=== PATIENT | male | born 1980 | race Caucasian/White ===

== ENCOUNTER 2016-09-25 13:10 | Inpatient (IN) | payer OTHER ==
[~2016-09-25] VITALS: Ht 162.6 cm; Wt 45.1 kg
--- NOTE | 2016-09-25 14:04 | EMERGENCY ROOM VISIT NOTE ---
History First contact with patient: 13:30 Chief Complaint: CONSTIPATION Stated Complaint: SORE ANUS, CONSTIPATION, NAUSEA, BITS OF BLOOD IN Nursing Triage Summary: Triage note: Pt reports constipation - last bm was 3 days ago. pt reports "today i threw up and there was a speck of blood in it." History of Present Illness The patient is a 35 year old male who presents to the Emergency Room with complaints of soreness around anus and constipation x 1 week Patient had a bowel movement one week ago. The stool was very painful and patient felt deep internal pain on the left side of his rectum. He feels that he might have noticed some blood on wiping Three days ago, he felt the urge to go, but was feeling the same pain. He had a minor bowel movement but experienced tenesmus. Since then, he has been passing gas with blood specked mucous discharge and streaks of stool. He sometimes has the urge to go, but is unable to defecate. He is unsure if this is a psychological fear of pain, or a physical inability to pass stool. He has been drinking increased amounts of water. Yesterday, he took some Metamucil and Miralax. Earlier today, he again drank a glass of Metamucil. Despite urge, he is unable to have a bowel movement Currently, he is experiencing soreness around his anal sphincter described as a burning and aching. The soreness makes it uncomfortable to sit or lie on his back. Symptoms improved with standing or lying on side He denies any abdominal pain. He has had some nausea earlier today with one episode of vomiting - bile, small volume, unsure if there was a speck of blood it. No denies anal trauma, and has had no abdominal surgery Travel outside the [facility] [place]. Review of Systems See HPI for pertinent positives and negatives. A total of ten systems were reviewed and were otherwise negative. Social History Smoking Status: Never Smoker Current/Historical Medications Miscellaneous Medications Finasteride (Propecia), 1 MG PO Allergies Coded Allergies: No Known Allergies (Unverified , 09/25/16) Physical Exam Vital Signs Date Time Temp Pulse Resp B/P Pulse Ox O2 Delivery O2 Flow Rate FiO2 09/25/16 18:28 119 17 108/65 97 Room Air 09/25/16 17:14 123 17 100/54 97 09/25/16 15:27 121 17 125/87 99 Room Air 09/25/16 13:13 36.9 125 18 147/87 98 Room Air Physical Exam GENERAL: alert, well appearing, thin, pacing in room, mild acute distress, non- toxic HEAD: Normocephalic, atraumatic. No sinus tenderness. EYES: PERRL, EOMI, normal conjunctiva OROPHARYNX: no exudate, no erythema, lips, buccal mucosa, and tongue normal and mucous membranes are dry NECK: supple, no nuchal rigidity, no adenopathy, non-tender LUNGS: Clear to auscultation. Normal chest wall mechanics, good air entry. No crepitations, crackles, or wheezes HEART: no murmurs, S1 normal and S2 normal, tachycardic CHEST: No reproducible tenderness. ABDOMEN: abdomen non-tender, not overdistended, but not as soft as expected. normo-active bowel sounds, no masses, no rebound or guarding. BACK: Back is symmetrical on inspection, no deformities, no midline tenderness, no CVA tenderness. No obvious perirectal abscess, fissure, or fistula SKIN: Warm, pink, dry. No erythema, rashes, or bruising. EXTREMITIES: Grossly normal. Moving all 4 limbs, strength 5/5. No pitting edema. Calves non tender. NEURO: Alert, Ox3. No focal deficits. Normal sensorium, cranial nerves II-XII grossly intact, normal speech. PSYCH: Mood and affect appropriate. Medical Decision & Procedures ER Provider Diagnostic Interpretation: KUB CLINICAL HISTORY: Constipation. FINDINGS: 2 AP supine abdominal radiograph are obtained. No prior studies are available for comparison at the time of dictation. There is a nonobstructed abdominal bowel gas pattern. There is rectosigmoid fecal impaction with moderate constipation noted throughout the remainder of the colon. No evidence of intraperitoneal free air is seen. There are no abnormal abdominal calcifications. The lung bases are clear. The bony structures appear intact. IMPRESSION: 1. No bowel obstruction. 2. Rectosigmoid fecal impaction and moderate constipation. CT SCAN OF THE ABDOMEN AND PELVIS WITH IV CONTRAST CLINICAL HISTORY: Constipation. Leukocytosis. COMPARISON STUDY: KUB dated 09/25/2016. TECHNIQUE: Following the IV administration of 118 cc of Optiray 320, CT scan of the abdomen and pelvis is performed from the lung bases to the proximal femora. Images are reviewed in the axial, sagittal, and coronal planes. IV contrast was administered without complication. Automated dose control exposure was utilized. CT DOSE: 259.60 mGy.cm FINDINGS: Lung bases: The heart is normal in size and without pericardial effusion. The lung bases are clear. Liver: The contrast-enhanced liver is normal in size, contour, and attenuation. There is no intrahepatic biliary ductal dilatation. The hepatic veins and portal veins are patent. Gallbladder: Unremarkable. Spleen: Normal in size and attenuation. Pancreas: Unremarkable. Adrenal glands: Unremarkable. Kidneys: The contrast enhanced kidneys are normal in size and without hydronephrosis. The kidneys enhance symmetrically. Abdominal vasculature: The abdominal aorta is normal in course and caliber. Bowel: There is rectosigmoid fecal impaction. Mild rectal wall thickening is noted. There is perirectal stranding. The appearance is typical for stercoral proctitis. There is moderate constipation throughout the remainder of the colon. No bowel obstruction is seen. The appendix is normal as visualized. Peritoneum: There is no intraperitoneal free air or abdominal ascites. Lymphadenopathy: None. Pelvic viscera: The bladder, prostate, and seminal vesicles are normal as visualized. Skeletal structures: No lytic or blastic lesions are seen. IMPRESSION: 1. There is rectosigmoid fecal impaction with evidence of stercoral proctitis. 2. Moderate constipation is seen throughout the remainder of the colon. No bowel obstruction is identified. Laboratory Results 09/25/16 15:25 Red Blood Count 4.83, Mean Corpuscular Volume 85.7, Mean Corpuscular Hemoglobin 30.6, Mean Corpuscular Hemoglobin Concent 35.7, Mean Platelet Volume 9.8, Neutrophils (%) (Auto) 90.8, Lymphocytes (%) (Auto) 3.3, Monocytes (%) (Auto) 4.8, Eosinophils (%) (Auto) 0.6, Basophils (%) (Auto) 0.1, Neutrophils # (Auto) 17.00, Lymphocytes # (Auto) 0.62, Monocytes # (Auto) 0.90, Eosinophils # (Auto) 0.11, Basophils # (Auto) 0.02 09/25/16 15:25 Test 09/25/16 15:25 White Blood Count 18.72 K/uL (4.8-10.8) Red Blood Count 4.83 M/uL (4.7-6.1) Hemoglobin 14.8 g/dL (14.0-18.0) Hematocrit 41.4 % (42-52) Mean Corpuscular Volume 85.7 fL (80-100) Mean Corpuscular Hemoglobin 30.6 pg (25-34) Mean Corpuscular Hemoglobin Concent 35.7 g/dl (32-36) Platelet Count 377 K/uL (130-400) Mean Platelet Volume 9.8 fL (7.4-10.4) Neutrophils (%) (Auto) 90.8 % Lymphocytes (%) (Auto) 3.3 % Monocytes (%) (Auto) 4.8 % Eosinophils (%) (Auto) 0.6 % Basophils (%) (Auto) 0.1 % Neutrophils # (Auto) 17.00 K/uL (1.4-6.5) Lymphocytes # (Auto) 0.62 K/uL (1.2-3.4) Monocytes # (Auto) 0.90 K/uL (0.11-0.59) Eosinophils # (Auto) 0.11 K/uL (0-0.5) Basophils # (Auto) 0.02 K/uL (0-0.2) RDW Standard Deviation 41.0 fL (36.4-46.3) RDW Coefficient of Variation 13.1 % (11.5-14.5) Immature Granulocyte % (Auto) 0.4 % Immature Granulocyte # (Auto) 0.07 K/uL (0.00-0.02) Anion Gap 12.0 mmol/L (3-11) Est Creatinine Clear Calc Drug Dose 63.9 ml/min Estimated GFR () 113.3 Estimated GFR (Non- 97.8 BUN/Creatinine Ratio 16.5 (10-20) Calcium Level 9.3 mg/dl (8.5-10.1) Total Bilirubin 0.7 mg/dl (0.2-1) Aspartate Amino Transf (AST/SGOT) 12 U/L (15-37) Alanine Aminotransferase (ALT/SGPT) 20 U/L (12-78) Alkaline Phosphatase 97 U/L (45-117) Total Protein 9.2 gm/dl (6.4-8.2) Albumin 4.7 gm/dl (3.4-5.0) Globulin 4.5 gm/dl (2.5-4.0) Albumin/Globulin Ratio 1.0 (0.9-2) Medications Administered Medications (Trade) Dose Ordered Sig/Zenon Route Start Time Stop Time Status Last Admin Dose Admin Sodium Chloride 1,000 ml @ 500 mls/hr Q2H IV 09/25/16 15:15 10/25/16 15:14 09/25/16 15:26 500 MLS/HR Sodium Chloride (Nss 1000ml) 1,000 ml @ 999 mls/hr Q1H1M STAT IV 09/25/16 18:29 09/25/16 19:29 09/25/16 18:39 999 MLS/HR Ciprofloxacin/ Dextrose (Cipro / D5w) 400 mg NOW STAT IV 09/25/16 18:38 09/25/16 18:40 DC 09/25/16 18:49 400 MG Metronidazole (Flagyl / Nss) 500 mg NOW STAT IV 09/25/16 18:38 09/25/16 18:40 DC 09/25/16 18:47 500 MG Sodium Biphosphate/ Sodium Phosphate (Fleet Enema) 132 ml NOW STAT AK 09/25/16 18:38 09/25/16 18:40 DC 09/25/16 18:49 132 ML Fentanyl Citrate (Fentanyl Inj) 50 mcg NOW STAT IV 09/25/16 18:44 09/25/16 18:45 DC 09/25/16 18:52 50 MCG Medical Decision The patient was evaluated in room C9. A complete history and physical exam was performed. Patient denied analgesic and antiemetic medication. 1L of IV normal saline was given to improve hydration status. Lab work was performed. CBC showed no anemia, but did show leukocytosis with neutrophilia. BMP and LFT were within normal limits. ANASTACIA was performed where some stool was felt at the fingertip. Fecal occult blood test was positive. Immediately after the ANASTACIA, patient was feeling lightheaded and had some emesis. He continued to refuse medications for nausea and pain KUB was performed and reported no bowel obstruction but rectosigmoid fecal impaction and moderate constipation. In view of elevated WBC, a CT was ordered Patient was updated on the results. The need for enema was discussed, unless otherwise contra-indicated on the CT scan report. CT AP showed rectosigmoid fecal impaction with evidence of stercoral proctitis and moderate constipation seen throughout the remainder of the colon but no bowel obstruction identified. Case was discussed with machine slat basket maker, Dr. Goldman at 18:[address] findings at 18:30. He advised that an enema be attempted to relieve impaction - a fleet enema preferred over a soap suds enema. If the enema was unable to cause disimpaction, GI would follow up with scoping. Given that patient meets SIRS criteria (tachycardia, leukocytosis, known source of infection), the need to commence IV antibiotics was also discussed. Patient was started on 400mg IV ciprofloxacin and 500mg IV metronidazole. A fleet enema was ordered, and patient was given 50mcg IV fentanyl prior. The case was discussed with hospitalist, Dr. Bergeron, who was agreeable to assess the patient for admission. Impression Primary Impression: Stercoral proctitis Additional Impressions: Fecal impaction, SIRS (systemic inflammatory response syndrome) Departure Information Dispostion Being Evaluated By Hospitalist Condition GOOD Referrals No Doctor, Assigned (PCP) Patient Instructions A Signature Page, [facility] [employer]
[2016-09-25] MEDS ORDERED: FINA1TAB3 PO (14:58)
[2016-09-25] MEDS: SODIUM CHLORIDE 0.9% 1000ML 1,000 ML IV SCH ×4 (15:26→21:30)
[2016-09-25 15:37] LABS: BASO % 0.1 %; BASO ABS # 0.02 K/uL (0-0.2); COMPLETE YES; EOS % 0.6 %; HEMATOCRIT 41.4 % (42-52); IG% 0.4 %; LYMPH % 3.3 %; LYMPH ABS # 0.62 K/uL (1.2-3.4); MEAN CELL VOLUME 85.7 fL (80-100); MEAN CORPUSCULAR HEMOGLOBIN 30.6 pg (25-34); MEAN CORPUSCULAR HGB CONC 35.7 g/dl (32-36); MEAN PLATELET VOLUME 9.8 fL (7.4-10.4); MONO % 4.8 %; NEUT % 90.8 %; PLATELET COUNT 377 K/uL (130-400); RED BLOOD COUNT 4.83 M/uL (4.7-6.1); WHITE BLOOD COUNT 18.72 K/uL (4.8-10.8)
[2016-09-25 16:01] LABS: BUN/CREATININE RATIO 16.5 (10-20); CALCIUM 9.3 mg/dl (8.5-10.1); POTASSIUM 3.7 mmol/L (3.5-5.1)
[2016-09-25] MEDS ORDERED: OPTIRAY 320 IV PRN (16:15)
--- NOTE | 2016-09-25 17:32 | DIAGNOSTIC IMAGING REPORT ---
KUB CLINICAL HISTORY: Constipation. FINDINGS: 2 AP supine abdominal radiograph are obtained. No prior studies are available for comparison at the time of dictation. There is a nonobstructed abdominal bowel gas pattern. There is rectosigmoid fecal impaction with moderate constipation noted throughout the remainder of the colon. No evidence of intraperitoneal free air is seen. There are no abnormal abdominal calcifications. The lung bases are clear. The bony structures appear intact. IMPRESSION: 1. No bowel obstruction. 2. Rectosigmoid fecal infection and moderate constipation. Electronically signed by: Baltazar Fritz M.D. 09/25/2016 5:31 PM
--- NOTE | 2016-09-25 18:17 | DIAGNOSTIC IMAGING REPORT ---
CT SCAN OF THE ABDOMEN AND PELVIS WITH IV CONTRAST CLINICAL HISTORY: Constipation. Leukocytosis. COMPARISON STUDY: KUB dated 09/25/2016. TECHNIQUE: Following the IV administration of 118 cc of Optiray 320, CT scan of the abdomen and pelvis is performed from the lung bases to the proximal femora. Images are reviewed in the axial, sagittal, and coronal planes. IV contrast was administered without complication. Automated dose control exposure was utilized. CT DOSE: 259.60 mGy.cm FINDINGS: Lung bases: The heart is normal in size and without pericardial effusion. The lung bases are clear. Liver: The contrast-enhanced liver is normal in size, contour, and attenuation. There is no intrahepatic biliary ductal dilatation. The hepatic veins and portal veins are patent. Gallbladder: Unremarkable. Spleen: Normal in size and attenuation. Pancreas: Unremarkable. Adrenal glands: Unremarkable. Kidneys: The contrast enhanced kidneys are normal in size and without hydronephrosis. The kidneys enhance symmetrically. Abdominal vasculature: The abdominal aorta is normal in course and caliber. Bowel: There is rectosigmoid fecal impaction. Mild rectal wall thickening is noted. There is perirectal stranding. The appearance is typical for stercoral proctitis. There is moderate constipation throughout the remainder of the colon. No bowel obstruction is seen. The appendix is normal as visualized. Peritoneum: There is no intraperitoneal free air or abdominal ascites. Lymphadenopathy: None. Pelvic viscera: The bladder, prostate, and seminal vesicles are normal as visualized. Skeletal structures: No lytic or blastic lesions are seen. IMPRESSION: 1. There is rectosigmoid fecal impaction with evidence of stercoral proctitis. 2. Moderate constipation is seen throughout the remainder of the colon. No bowel obstruction is identified. Electronically signed by: Baltazar Fritz M.D. 09/25/2016 6:15 PM
[2016-09-25] MEDS ORDERED: SODIUM CHLORIDE 0.9% 1000ML 1,000 ML IV STA (18:29)
[2016-09-25] MEDS ORDERED: METRONIDAZOLE 500MG / 100ML NSS IV STA (18:38)
[2016-09-25] MEDS ORDERED: SOD PHOSPHATE/SOD BIPHOSPHATE ENEMA 132 ML BTL PR STA (18:38)
[2016-09-25] MEDS ORDERED: CIPROFLOXACIN 400MG / 200ML D5W IV STA (18:38)
[2016-09-25] MEDS ORDERED: FENTANYL CITRATE INJ 50 MCG/1 ML 2 ML VIAL IV STA ×2 (18:44→20:13)
[2016-09-25] MEDS ORDERED: MoRPHine SULFATE 4 MG/ML 1 ML CARP\\VIAL IV PRN (20:15)
[2016-09-25] MEDS ORDERED: MoRPHine SULFATE 2 MG/ML CARP IV PRN (20:15)
--- NOTE | 2016-09-25 20:59 | History and Physical ---
History & Physical H&P dictated. #[id number].
--- NOTE | 2016-09-25 21:29 | EMERGENCY ROOM VISIT NOTE ---
ED Visit Note First contact with patient: 14:58 Resident Physician Supervision Note: Dr. Stacey Fung was resident physician during care of patient. I separately evaluated patient and did history and exam. I discussed the case with the resident and generally agree with the findings and plan. 35 yr old male who notes painful bloody firm BM 1 week ago and since then holding back from BM. Increasing low pelvic discomfort and now diffuse mild discomfort consistent with constipation. Exam is consistent with hypoactive bowel sounds, some mild distention, non-surgical mild vague diffuse TTP, and some tachycardia. He does not appear overtly septic though labs returned WBC, and with tachycardia I am worried he is early sepsis. Given fluids and with this felt CT reasonable. CT shows significant proctitis. I discussed with GI who suggest Flagyl/Cipro and a Fleets enema (advised against any larger volumn enema). Patient without peritonitis. I made it clear to patient and family/ friends the concern for perforation but as unable to digitally disimpact will need to try something, thus the fleet enema. Stable otherwise feeling well. Was given small dose fentanyl for his discomfort prior being given fleet. Diagnosis: Stercoral Proctitis Fecal impaction Constipation Sepsis Documented By: Miguel Rock MD
--- NOTE | 2016-09-25 21:46 | HISTORY & PHYSICAL EXAMINATION ---
DATE OF ADMISSION: 09/25/2016 CHIEF COMPLAINT: Constipation, blood per rectum. HISTORY OF PRESENT ILLNESS: A 35-year-old male, who presents to the Emergency Department complaining of soreness around his anus and not having a bowel movement for approximately one week. He said, approximately a week ago, he did notice some deep pain in the left side of his rectum and in a sense purposely did not want to have a bowel movement, thinking that this would cause more pain and perhaps bleeding. He attempted to use Metamucil and MiraLax a day prior to coming to the Emergency Department, but still was unable to have a bowel movement. Actually he felt that it increased his abdominal pain and he even had nausea and vomiting today. PAST MEDICAL HISTORY: Unremarkable. MEDICATIONS: Finasteride 1 mg p.o. daily. ALLERGIES: He has no known drug allergies. SOCIAL HISTORY: He is a musician, self-employed, single and actually visiting his girlfriend's parents in this area, lives in [place]. He has never smoked. No alcohol, no illicit substances. REVIEW OF SYSTEMS: A 10-system review was performed all of which were negative. I placed the positives in the HPI. FAMILY HISTORY: Unremarkable. PHYSICAL EXAMINATION: VITAL SIGNS: Temperature 36.9, pulse 125, respiratory rate 18, blood pressure 147/87 and pulse ox 98% on room air. GENERAL: The patient is awake, alert and oriented x3, in mild distress secondary to lower abdominal and rectal pain. HEENT: TMs intact. No inflammation. Extraocular muscles intact, Pupils are equal, round and react to light and accommodation. Mucous membranes are moist. Throat is clear. NECK: No JVD or lymphadenopathy. LUNGS: Clear to auscultation bilaterally. No rales, rhonchi or wheezes. HEART: Regular, normal S1, S2, without murmurs, rubs or gallops. ABDOMEN: Soft. Normal bowel sounds. No rebound or guarding. There is some tenderness with deep pressure in the lower mid quadrant. SKIN: Warm and dry. No rashes. EXTREMITIES: No clubbing, cyanosis or edema. NEUROLOGIC: Cranial nerves II-XII are grossly intact and nonfocal. PSYCHIATRIC: The patient is pleasant and cooperative. LABORATORY DATA: White count is elevated at 18.72, hemoglobin 14.8, hematocrit 41.4, platelet count of 377,000. Sodium 136, potassium 3.7, chloride 99, CO2 25, BUN 16, creatinine 1.0, AST of 12, ALT of 20, glucose was [address] scan of the abdomen and pelvis revealed: 1. Rectosigmoid fecal impaction with evidence of stercoral proctitis. 2. Moderate constipation is seen throughout the remainder of the colon. No bowel obstruction is identified. ASSESSMENT: 1. Rectosigmoid fecal impaction. 2. Proctitis. 3. Constipation. PLAN: The patient was admitted and placed on IV Cipro and IV Flagyl. He was given IV fluids. He can have a full liquid diet until midnight, at which point he will be made n.p.o. in the event that upon consultation with GI a sigmoidoscopy may be procured. Under the direction of the pearl maker the patient was given a Fleet enema in the Emergency Department and was actually able to pass a hard stool just minutes ago. He was offered pain control and nausea control. DVT prophylaxis in the form of TEDs and SCDs with holding a pharmacologic prophylaxis in that the patient is able to ambulate, so is at lower risk and also may be proceeding with a procedure in the near future. KRIS
[2016-09-25] MEDS: SODIUM CHLOR 0.45% + 20MEQ KCL 1,000 ML IV SCH (22:40)
[2016-09-25] MEDS: ONDANSETRON INJ 2 MG/ML 2 ML VIAL IV PRN (22:45)
[2016-09-25 23:00] VITALS: BP 137/74; PULSE 105; TEMP 37; O2SAT 93; Ht 162.6 cm; Wt 45.1 kg
[2016-09-25] MEDS: FAMOTIDINE 20 MG TAB PO SCH (23:20)
[2016-09-26] VITALS (9 sets, daily range): BP systolic 106–145; BP diastolic 58–81; PULSE 91–121; TEMP 36.8–37.6; O2SAT 96–100
[2016-09-26 02:01] LABS: MANUAL MICROSCOPIC REQUIRED? NO; REVIEW REQ? NO; URINE APPEARANCE CLEAR (CLEAR); URINE BILIRUBIN NEG (NEG); URINE COLOR YELLOW; URINE NITRITE NEG (NEG); URINE SPECIFIC GRAVITY 1.041 (1.000-1.030); UROBILINOGEN NEG (NEG)
[2016-09-26] MEDS: METRONIDAZOLE / NSS 500 MG in PREMIXED NSS 100 ML IV SCH ×3 (02:08→18:35)
[2016-09-26] MEDS: ONDANSETRON INJ 2 MG/ML 2 ML VIAL IV PRN ×2 (05:46→23:39)
[2016-09-26] MEDS: KETOROLAC TROMETHAMINE 15 MG/ML VIAL IV. PRN ×3 (05:47→23:40)
[2016-09-26] MEDS: CIPROFLOXACIN / D5W 400 MG in PREMIXED IN D5W 200 ML IV SCH ×2 (05:48→18:35)
[2016-09-26] MEDS: SODIUM CHLOR 0.45% + 20MEQ KCL 1,000 ML IV SCH ×3 (05:48→21:10)
[2016-09-26 07:25] LABS: BASO % 0.3 %; BASO ABS # 0.03 K/uL (0-0.2); COMPLETE YES; EOS % 0.2 %; HEMATOCRIT 31.5 % (42-52); IG% 0.3 %; LYMPH % 7.7 %; LYMPH ABS # 0.72 K/uL (1.2-3.4); MEAN CELL VOLUME 86.3 fL (80-100); MEAN CORPUSCULAR HEMOGLOBIN 29.3 pg (25-34); MEAN PLATELET VOLUME 9.6 fL (7.4-10.4); MONO % 13.1 %; NEUT % 78.4 %; PLATELET COUNT 267 K/uL (130-400); RED BLOOD COUNT 3.65 M/uL (4.7-6.1); WHITE BLOOD COUNT 9.34 K/uL (4.8-10.8)
[2016-09-26 07:52] LABS: BUN/CREATININE RATIO 12.8 (10-20); C-REACTIVE PROTEIN 7.74 mg/dl (0-0.29); CALCIUM 7.2 mg/dl (8.5-10.1); CREATININE 0.74 mg/dl (0.60-1.40); POTASSIUM 3.3 mmol/L (3.5-5.1)
[2016-09-26] MEDS: FAMOTIDINE 20 MG TAB PO SCH ×2 (09:00→20:35)
--- NOTE | 2016-09-26 11:11 | Hospitalist Progress Note ---
Hospitalist Progress Note Date of Service Sep 26, 2016. Subjective Pt evaluation today including: conversation w/ patient, physical exam, chart review, lab review, review of studies, review of inpatient medication list Having less pain today. Passing gas from below, but has not had any further bm. Potassium was 3.3. I ordered a K-rider. He does have potassium in his IVF currently. He has been NPO from midnight awaiting possibility of sigmoidoscopy today. Additional Comments: A 10 system review was performed and all were negative. Positives were placed in the subjective section. Objective Vital Signs Date Time Temp Pulse Resp B/P Pulse Ox O2 Delivery O2 Flow Rate FiO2 09/26/16 08:00 99 Room Air 09/26/16 07:03 36.9 104 20 106/60 99 Room Air 09/26/16 05:07 37.6 102 20 111/58 96 Room Air 09/26/16 00:03 36.9 121 22 110/66 99 Room Air 09/25/16 23:00 37.0 105 20 137/74 93 Room Air 09/25/16 21:51 16 09/25/16 21:20 106 16 118/75 Room Air 09/25/16 18:28 119 17 108/65 97 Room Air 09/25/16 17:14 123 17 100/54 97 09/25/16 15:27 121 17 125/87 99 Room Air 09/25/16 13:13 36.9 125 18 147/87 98 Room Air Physical Exam Notes: GEN: Awake, alert, and oriented x 3. Not in acute distress HEENT: Tm's intact, no inflammation, EOMI, PERRLA, MMM Neck: Soft, supple Lungs: CTA b/l, no r/r/w Heart: REG, nrl S1S2 without murmurs, rubs or gallops Abdomen: Soft, NT, ND, + BS EXT: No C/C/E NEURO: CN's II-XII grossly intact, non-focal Skin: warm, dry, no rashes PSYCH: pleasant, cooperative, no signs of significant anxiety or depression. Laboratory Results Last 24 Hours Test 09/25/16 15:25 09/26/16 01:50 09/26/16 06:55 White Blood Count 18.72 K/uL 9.34 K/uL Red Blood Count 4.83 M/uL 3.65 M/uL Hemoglobin 14.8 g/dL 10.7 g/dL Hematocrit 41.4 % 31.5 % Mean Corpuscular Volume 85.7 fL 86.3 fL Mean Corpuscular Hemoglobin 30.6 pg 29.3 pg Mean Corpuscular Hemoglobin Concent 35.7 g/dl 34.0 g/dl Platelet Count 377 K/uL 267 K/uL Mean Platelet Volume 9.8 fL 9.6 fL Neutrophils (%) (Auto) 90.8 % 78.4 % Lymphocytes (%) (Auto) 3.3 % 7.7 % Monocytes (%) (Auto) 4.8 % 13.1 % Eosinophils (%) (Auto) 0.6 % 0.2 % Basophils (%) (Auto) 0.1 % 0.3 % Neutrophils # (Auto) 17.00 K/uL 7.32 K/uL Lymphocytes # (Auto) 0.62 K/uL 0.72 K/uL Monocytes # (Auto) 0.90 K/uL 1.22 K/uL Eosinophils # (Auto) 0.11 K/uL 0.02 K/uL Basophils # (Auto) 0.02 K/uL 0.03 K/uL RDW Standard Deviation 41.0 fL 42.5 fL RDW Coefficient of Variation 13.1 % 13.4 % Immature Granulocyte % (Auto) 0.4 % 0.3 % Immature Granulocyte # (Auto) 0.07 K/uL 0.03 K/uL Sodium Level 136 mmol/L 140 mmol/L Potassium Level 3.7 mmol/L 3.3 mmol/L Chloride Level 99 mmol/L 106 mmol/L Carbon Dioxide Level 25 mmol/L 24 mmol/L Anion Gap 12.0 mmol/L 10.0 mmol/L Blood Urea Nitrogen 16 mg/dl 10 mg/dl Creatinine 1.00 mg/dl 0.74 mg/dl Est Creatinine Clear Calc Drug Dose 63.9 ml/min 132.8 ml/min Estimated GFR () 113.3 139.5 Estimated GFR (Non- 97.8 120.3 BUN/Creatinine Ratio 16.5 12.8 Random Glucose 116 mg/dl 108 mg/dl Calcium Level 9.3 mg/dl 7.2 mg/dl Total Bilirubin 0.7 mg/dl Aspartate Amino Transf (AST/SGOT) 12 U/L Alanine Aminotransferase (ALT/SGPT) 20 U/L Alkaline Phosphatase 97 U/L Total Protein 9.2 gm/dl Albumin 4.7 gm/dl Globulin 4.5 gm/dl Albumin/Globulin Ratio 1.0 Urine Color YELLOW Urine Appearance CLEAR Urine pH 5.0 Urine Specific Call 1.041 Urine Protein NEG Urine Glucose (UA) NEG Urine Ketones 2+ Urine Occult Blood NEG Urine Nitrite NEG Urine Bilirubin NEG Urine Urobilinogen NEG Urine Leukocyte Esterase NEG Erythrocyte Sedimentation Rate 13 mm/hr C-Reactive Protein 7.74 mg/dl Assessment and Plan 1. Rectosigmoid fecal impaction. 2. Proctitis. 3. Constipation. 4. Hypokalemia PLAN: Continue IV Cipro and IV Flagyl and IVF. K-rider to be given. n.p.o. awaiting consultation with GI a sigmoidoscopy may be procured. TEDs and SCDs for DVT prophylaxis. Continued [facility] stay due to: multiple IV medications needed Discharge planning: home
[2016-09-26] MEDS ORDERED: SOD PHOSPHATE/SOD BIPHOSPHATE ENEMA 132 ML BTL PR SCH (11:30)
[2016-09-26] MEDS ORDERED: POTASSIUM CHLR 10 MEQ / WTR 10 MEQ in PREMIXED WATER 100 ML IV ONE (11:30)
[2016-09-26] MEDS ORDERED: MIDAZOLAM HCL 1 MG/ML 2ML VIAL ONE (12:12)
--- NOTE | 2016-09-26 12:50 | Endo History and Physical ---
History & Physical Date of Service: Sep 26, 2016. Chief Complaint: Constipation Referring Physician: Dr Bergeron History of Present Illness For Flex sig Social History Smoking Status: Unknown if Ever Smoked Hx Substance Use: No Hx Alcohol Use: Yes (BEER/ONCE A WEEK) Allergies Coded Allergies: No Known Allergies (Unverified , 09/26/16) Current Medications Reported Home Medications Medications Dose Route/Sig Max Daily Dose Days Date Category Propecia (Finasteride) 1 Mg Tab 1 Mg PO 09/25/16 Reported Vital Signs Weight (Kilograms): 78.000 Height (Feet): 5 Height (Inches): 4.00 Date Time Temp Pulse Resp B/P Pulse Ox O2 Delivery O2 Flow Rate FiO2 09/26/16 12:40 36.9 102 18 128/75 98 Room Air 09/26/16 12:00 36.8 100 18 145/78 98 Room Air 94 09/26/16 11:38 36.8 100 20 114/68 98 Room Air 09/26/16 08:00 99 Room Air 09/26/16 07:03 36.9 104 20 106/60 99 Room Air 09/26/16 05:07 37.6 102 20 111/58 96 Room Air 09/26/16 00:03 36.9 121 22 110/66 99 Room Air 09/25/16 23:00 37.0 105 20 137/74 93 Room Air 09/25/16 21:51 16 09/25/16 21:20 106 16 118/75 Room Air 09/25/16 18:28 119 17 108/65 97 Room Air 09/25/16 17:14 123 17 100/54 97 09/25/16 15:27 121 17 125/87 99 Room Air 09/25/16 13:13 36.9 125 18 147/87 98 Room Air Physical Exam General Appearance: + thin Respiratory/Chest: Respiratory effort: no dyspnea Cardiovascular: Heart Auscultation: RRR Abdomen: Inspection & Palpation: soft Assessment and Plan Constipation for flex sig
--- NOTE | 2016-09-26 13:05 | Discharge Instructions ---
Endoscopy Patient Instructions Date / Procedure(s) Performed Sep 26, 2016. Flex Sig Allergy Information Coded Allergies: No Known Allergies (Unverified , 09/26/16) Discharge Date / Findings Sep 26, 2016. Perianal ulcers and fissure Medication Instructions Restart Stopped Medication(s): resume meds Current Inpatient Medications Medications (Trade) Dose Ordered Sig/Zenon Route Start Time Stop Time Status Last Admin Dose Admin Ioversol 100 ml 100 ml UD PRN IV 09/25/16 16:15 09/29/16 16:14 Potassium Chloride/Sodium Chloride (09/26 Nss + 20meq KCl 1000ml) 1,000 ml @ 125 mls/hr Q8H IV 09/25/16 22:00 10/25/16 21:59 09/26/16 05:48 125 MLS/HR Morphine Sulfate (MoRPHine SULFATE INJ) 2 mg Q3H PRN IV 09/25/16 20:15 10/09/16 20:14 Ketorolac Tromethamine (Toradol Inj) 15 mg Q6H PRN IV. 09/25/16 20:15 09/30/16 20:14 09/26/16 11:22 15 MG Morphine Sulfate (MoRPHine SULFATE INJ) 4 mg Q3H PRN IV 09/25/16 20:15 10/09/16 20:14 Ondansetron HCl 4 mg 4 mg Q6H PRN IV 09/25/16 20:15 10/25/16 20:14 09/26/16 05:46 4 MG Ciprofloxacin/ Dextrose 400 mg/ Prmx 200 ml @ 100 mls/hr Q12H IV 09/26/16 06:30 10/06/16 06:29 09/26/16 05:48 100 MLS/HR Metronidazole/Prmx (Flagyl / Nss/ Premixed Nss) 100 ml @ 100 mls/hr Q8H IV 09/26/16 02:30 10/06/16 02:29 09/26/16 11:33 100 MLS/HR Famotidine (Pepcid Tab) 20 mg BID PO 09/25/16 21:00 10/25/16 20:59 09/25/16 23:20 20 MG Sodium Biphosphate/ Sodium Phosphate (Fleet Enema) 132 ml 1130 MS 09/26/16 11:30 09/26/16 16:00 09/26/16 11:30 132 ML Provider Instructions Activity Restrictions - No exercising or heavy lifting for 24 hours. - Do not drink alcohol the day of the procedure. - Do not drive a car or operate machinery until the day after the procedure. - Do not make any important decisions or sign important papers in 24 hours after the procedure. Following Day: - Return to full activity which may include returning to work/school. Diet Start your diet with liquids and light foods (jello, soup, juice, toast). Then eat your usual diet if not nauseated. Treatment For Common After Affects For mild abdominal pain, bloating, or excessive gas: - Rest - Eat lightly - Lie on right side Follow-Up Information Follow-up with as scheduled Anesthesia Information What You Should Know You have had a procedure that required some medicine to reduce anxiety and discomfort. This treatment is called moderate sedation. After receiving the treatment, you may be sleepy, but you will be able to breathe on your own. The effects of the treatment may last for several hours. Follow these instructions along with Activity/Diet recommendations noted above: * Do NOT do anything where dizziness or clumsiness would be dangerous. * Rest quietly at home today, then you can be up and about tomorrow. * Have a responsible person stay with you the rest of today. * You may have had an I.V. today. If so, you may take the dressing off later today. Recommendations Call your doctor if: * Trouble breathing * Continuous vomiting for more than 24 hours * Temperature above 101 degrees * Severe abdominal pain or bloating * Pain not relieved by pain medicine ordered * There is increased drainage or redness from any incision * A large amount of rectal bleeding greater than 2-3 tablespoons. (If you had a polyp/s removed or have hemorrhoids, a small amount of blood - from the rectum is to be expected.) * You have any unanswered questions or concerns. IN THE EVENT OF A SERIOUS EMERGENCY, GO TO THE NEAREST EMERGENCY ROOM Your discharge instructions were prepared by provider Jose Goldman. Patient Instructions Signature Page Steve Sheth Patient (or Guardian) Signature/Date: I have read and understand the instructions given to me by my caregivers. Caregiver/RN/Doctor Signature/Date: The above-named patient and/or guardian has received patient instructions on this date. + Original Patient Signature Page (only) stays with chart. Please make copy for patient.
[2016-09-26] MEDS ORDERED: LIDOCAINE HCL 2% 2 ML VIAL (20MG/ML) ONE (13:12)
[2016-09-26] MEDS ORDERED: PROPOFOL IV EMULSION 10 MG/ML 20 ML VIAL IV ONE (13:12)
[2016-09-26] MEDS ORDERED: PHENYLEPHRINE 100MCG/ML 5ML SYR ONE (13:13)
[2016-09-26] MEDS ORDERED: LIDOCAINE 4% CREAM 15 GM TUBE EXT PRN (13:30)
--- NOTE | 2016-09-26 13:34 | GASTROINTESTINAL CONSULTATION ---
DATE OF CONSULTATION: 09/26/2016 REASON FOR EVALUATION: Constipation and abnormal CT scan. HISTORY OF PRESENT ILLNESS: The patient is a 35-year-old male visiting from [place] has not had a bowel movement for a week. Prior to that, he stated he had a bowel movement that was painful around the anal area and since then he has been afraid to have any bowel movements and has not moved his bowels for a week. He presented to the Emergency Room with a lot of abdominal pain and perianal pain. His white count was elevated at 18,[address] scan was performed which showed a fecal impaction and some thickening of the rectum and some stranding around the rectum suggesting a proctitis prompting GI consultation. PAST MEDICAL HISTORY: Unremarkable. MEDICATIONS: Finasteride 1 mg a day. ALLERGIES: None. FAMILY HISTORY: Noncontributory. 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 He normally lives in [place]. Does not smoke, does not use alcohol. No recreational drugs. REVIEW OF SYSTEMS: Negative for 12 systems. PHYSICAL EXAMINATION: GENERAL: The patient is a thin, but in no acute distress. VITAL SIGNS: Normal. He is afebrile. LUNGS: Clear. HEART: Showed a normal S1 and S2 with regular rate and rhythm without murmurs, rubs, or gallops. ABDOMEN: Soft. There are no masses, tenderness, or hepatosplenomegaly. NEUROLOGIC: Nonfocal. LABORATORY AND IMAGING DATA: White count 18.72, hemoglobin 14.8, platelets 377,000. Liver profile is normal. CT scan shows fecal impaction and some thickening of the rectum. IMPRESSION AND PLAN: The patient presents with constipation. I plan on giving him Fleets enemas until clear and then scheduling him for a flexible sigmoidoscopy for further evaluation. Differential diagnosis would include anal fissure, anal stenosis, proctitis, Crohn's disease or an infectious etiology.
--- NOTE | 2016-09-26 14:38 | Anesthesiology Progress Note ---
Anesthesia Post Op Note Date & Time Sep 26, 2016 at 14:37 Vital Signs Pain Intensity: 0 Vital Signs Past 12 Hours Date Time Temp Pulse Resp B/P Pulse Ox O2 Delivery O2 Flow Rate FiO2 09/26/16 14:32 37.0 98 18 116/81 99 Room Air 09/26/16 13:50 99 18 101/58 100 Room Air 09/26/16 13:43 99 18 96/62 100 Room Air 09/26/16 13:40 82 18 94/58 100 Room Air 09/26/16 13:31 88 18 88/54 100 Room Air 09/26/16 13:20 95 18 85/52 98 95 09/26/16 13:06 77 16 109/66 96 Room Air 09/26/16 12:40 36.9 102 18 128/75 98 Room Air 09/26/16 12:00 36.8 100 18 145/78 98 Room Air 94 09/26/16 11:38 36.8 100 20 114/68 98 Room Air 09/26/16 08:00 99 Room Air 09/26/16 07:03 36.9 104 20 106/60 99 Room Air 09/26/16 05:07 37.6 102 20 111/58 96 Room Air Notes Mental Status: alert / awake / arousable Nausea / Vomiting: adequately controlled Pain: adequately controlled Airway Patency, RR, SpO2: stable & adequate BP & HR: stable & adequate Hydration State: stable & adequate Anesthetic Complications: no major complications apparent
[2016-09-27 00:19] VITALS: BP 126/76; PULSE 111; TEMP 37.9; O2SAT 99
[2016-09-27] MEDS: METRONIDAZOLE / NSS 500 MG in PREMIXED NSS 100 ML IV SCH ×2 (02:20→10:11)
[2016-09-27] MEDS: SODIUM CHLOR 0.45% + 20MEQ KCL 1,000 ML IV SCH (05:34)
[2016-09-27] MEDS: CIPROFLOXACIN / D5W 400 MG in PREMIXED IN D5W 200 ML IV SCH (05:34)
[2016-09-27 07:19] VITALS: BP 110/70; PULSE 91; TEMP 37.2; O2SAT 99
[2016-09-27 07:31] LABS: BASO % 0.2 %; BASO ABS # 0.02 K/uL (0-0.2); COMPLETE YES; EOS % 1.3 %; HEMATOCRIT 30.3 % (42-52); IG% 0.4 %; LYMPH ABS # 1.18 K/uL (1.2-3.4); MEAN CELL VOLUME 87.3 fL (80-100); MEAN CORPUSCULAR HEMOGLOBIN 29.7 pg (25-34); MEAN PLATELET VOLUME 9.8 fL (7.4-10.4); MONO % 13.7 %; NEUT % 70.4 %; PLATELET COUNT 246 K/uL (130-400); RED BLOOD COUNT 3.47 M/uL (4.7-6.1)
[2016-09-27 08:00] LABS: BUN/CREATININE RATIO 9.6 (10-20); CALCIUM 7.8 mg/dl (8.5-10.1); CREATININE 0.68 mg/dl (0.60-1.40); POTASSIUM 3.6 mmol/L (3.5-5.1)
[2016-09-27] MEDS: FAMOTIDINE 20 MG TAB PO SCH (08:11)
--- NOTE | 2016-09-27 10:35 | Hospitalist Progress Note ---
Hospitalist Progress Note Date of Service Sep 27, 2016. (Mary Lou Mckeon PA-C) 09/27/16 agree with PA note (Roney Valadez MD) Subjective Pt evaluation today including: conversation w/ patient, physical exam, chart review, lab review, review of studies Patient reports feeling much better today. Had multiple bowel movements yesterday after the Fleet enema and flex scope. Does admit to feeling fevers overnight with chills and sweats. Rectal pain much improved. Denies nausea. Additional Comments: 6 system review negative. Please see pertinent positives in the history of present illness section. (Mary Lou Mckeon PA-C) Pt evaluation today including: conversation w/ patient, conversation w/ family , physical exam, chart review, review of studies, review of inpatient medication list has moved bms Constitutional: No fever ENT: No hearing loss Respiratory: No cough Abdomen: No pain Male : No dysuria Psychiatric: No depression symptoms (Roney Valadez MD) Objective Vital Signs Date Time Temp Pulse Resp B/P Pulse Ox O2 Delivery O2 Flow Rate FiO2 09/27/16 08:00 Room Air 09/27/16 07:19 37.2 91 18 110/70 99 Room Air 09/27/16 00:19 37.9 111 22 126/76 99 Room Air 09/27/16 00:00 Room Air 09/26/16 16:00 100 Room Air 09/26/16 15:16 36.8 91 16 112/71 100 Room Air 09/26/16 14:32 37.0 98 18 116/81 99 Room Air 09/26/16 13:50 99 18 101/58 100 Room Air 09/26/16 13:43 99 18 96/62 100 Room Air 09/26/16 13:40 82 18 94/58 100 Room Air 09/26/16 13:31 88 18 88/54 100 Room Air 09/26/16 13:20 95 18 85/52 98 95 09/26/16 13:06 77 16 109/66 96 Room Air 09/26/16 12:40 36.9 102 18 128/75 98 Room Air 09/26/16 12:00 36.8 100 18 145/78 98 Room Air 94 09/26/16 11:38 36.8 100 20 114/68 98 Room Air (Mary Lou Mckeon PA-C) Physical Exam General Appearance: no apparent distress Eyes: EOMI Neck: no JVD Respiratory/Chest: lungs clear Cardiovascular: no murmur, + tachycardia Abdomen: normal bowel sounds, non tender, soft Extremities: non-tender, no pedal edema Neurologic/Psychiatric: no motor/sensory deficits (Mary Lou Mckeon PA-C) General Appearance: WD/WN, no apparent distress Eyes: normal inspection, EOMI ENT: hearing grossly normal, pharynx normal Neck: supple, no JVD Respiratory/Chest: chest non-tender, normal breath sounds Cardiovascular: no edema, no JVD Abdomen: non tender, soft Extremities: normal range of motion, non-tender Neurologic/Psychiatric: no motor/sensory deficits, normal mood/affect (Roney Valadez MD) Laboratory Results 09/27/16 07:02 Red Blood Count 3.47, Mean Corpuscular Volume 87.3, Mean Corpuscular Hemoglobin 29.7, Mean Corpuscular Hemoglobin Concent 34.0, Mean Platelet Volume 9.8, Neutrophils (%) (Auto) 70.4, Lymphocytes (%) (Auto) 14.0, Monocytes (%) (Auto) 13.7, Eosinophils (%) (Auto) 1.3, Basophils (%) (Auto) 0.2, Neutrophils # (Auto ) 5.91, Lymphocytes # (Auto) 1.18, Monocytes # (Auto) 1.15, Eosinophils # (Auto ) 0.11, Basophils # (Auto) 0.02 09/27/16 07:02 Test 09/27/16 07:02 White Blood Count 8.40 K/uL (4.8-10.8) Red Blood Count 3.47 M/uL (4.7-6.1) Hemoglobin 10.3 g/dL (14.0-18.0) Hematocrit 30.3 % (42-52) Mean Corpuscular Volume 87.3 fL (80-100) Mean Corpuscular Hemoglobin 29.7 pg (25-34) Mean Corpuscular Hemoglobin Concent 34.0 g/dl (32-36) Platelet Count 246 K/uL (130-400) Mean Platelet Volume 9.8 fL (7.4-10.4) Neutrophils (%) (Auto) 70.4 % Lymphocytes (%) (Auto) 14.0 % Monocytes (%) (Auto) 13.7 % Eosinophils (%) (Auto) 1.3 % Basophils (%) (Auto) 0.2 % Neutrophils # (Auto) 5.91 K/uL (1.4-6.5) Lymphocytes # (Auto) 1.18 K/uL (1.2-3.4) Monocytes # (Auto) 1.15 K/uL (0.11-0.59) Eosinophils # (Auto) 0.11 K/uL (0-0.5) Basophils # (Auto) 0.02 K/uL (0-0.2) RDW Standard Deviation 43.1 fL (36.4-46.3) RDW Coefficient of Variation 13.4 % (11.5-14.5) Immature Granulocyte % (Auto) 0.4 % Immature Granulocyte # (Auto) 0.03 K/uL (0.00-0.02) Anion Gap 11.0 mmol/L (3-11) Est Creatinine Clear Calc Drug Dose 97.6 ml/min Estimated GFR () 144.4 Estimated GFR (Non- 124.6 BUN/Creatinine Ratio 9.6 (10-20) Calcium Level 7.8 mg/dl (8.5-10.1) Last 24 Hours Test 09/27/16 07:02 White Blood Count 8.40 K/uL Red Blood Count 3.47 M/uL Hemoglobin 10.3 g/dL Hematocrit 30.3 % Mean Corpuscular Volume 87.3 fL Mean Corpuscular Hemoglobin 29.7 pg Mean Corpuscular Hemoglobin Concent 34.0 g/dl Platelet Count 246 K/uL Mean Platelet Volume 9.8 fL Neutrophils (%) (Auto) 70.4 % Lymphocytes (%) (Auto) 14.0 % Monocytes (%) (Auto) 13.7 % Eosinophils (%) (Auto) 1.3 % Basophils (%) (Auto) 0.2 % Neutrophils # (Auto) 5.91 K/uL Lymphocytes # (Auto) 1.18 K/uL Monocytes # (Auto) 1.15 K/uL Eosinophils # (Auto) 0.11 K/uL Basophils # (Auto) 0.02 K/uL RDW Standard Deviation 43.1 fL RDW Coefficient of Variation 13.4 % Immature Granulocyte % (Auto) 0.4 % Immature Granulocyte # (Auto) 0.03 K/uL Sodium Level 140 mmol/L Potassium Level 3.6 mmol/L Chloride Level 107 mmol/L Carbon Dioxide Level 22 mmol/L Anion Gap 11.0 mmol/L Blood Urea Nitrogen 7 mg/dl Creatinine 0.68 mg/dl Est Creatinine Clear Calc Drug Dose 97.6 ml/min Estimated GFR () 144.4 Estimated GFR (Non- 124.6 BUN/Creatinine Ratio 9.6 Random Glucose 98 mg/dl Calcium Level 7.8 mg/dl (Mary Lou Mckeon PA-C) Assessment and Plan 35-year-old male presented to the emergency department with rectal pain, constipation. Found to have Rectosigmoid fecal impaction/proctitis status post flex sigmoidoscopy-overall improving -Change to po ABX -Continue IVF -Diet as tolerated DVT prophylaxis -Ambulate -TEDS, SCDs CODE STATUS -LEVEL I FULL CODE DISPO -Hopefully home later today Continued [facility] stay due to: fever (Mary Lou Mckeon PA-C) 35-year-old male presented to the emergency department with rectal pain, constipation. Found to have Rectosigmoid fecal impaction/proctitis status post flex sigmoidoscopy-overall improving Change to po ABX Continue IVF Diet as tolerated DVT prophylaxis Ambulate TEDS, SCDs CODE STATUS FULL CODE DISPO d/c home later today (Roney Valadez MD)
[2016-09-27] MEDS ORDERED: METR-163 PO (11:11)
[2016-09-27] MEDS ORDERED: CIPR-255 PO (11:11)
--- NOTE | 2016-09-27 11:18 | Discharge Instructions ---
Discharge Instructions Admission Reason for Admission: Fecal Impaction,Proctitis Discharge Discharge Diagnosis / Problem: constipation, proctitis Discharge Goals Goal(s): Decrease discomfort Activity Recommendations Activity Limitations: resume your previous activity . Instructions / Follow-Up Instructions / Follow-Up You have been treated for severe constipation and proctitis. It is important for you to drink at least 2 liters of water daily to prevent further constipation Please finish the entire course of antibiotics Please take a over the counter stool softener such as Colace twice daily as needed Please follow up with your primary care physician in 1 week Please follow up with Dr. Goldman from GI within 1 month Return to the emergency department if you have any of the following symptoms: -Fever of 103F or greater -Persistent vomiting - Persistent diarrhea -Lethargy -Chest pain -Shortness of breath -Worsening pain Current Hospital Diet Patient's current hospital diet: Regular Diet Discharge Diet Recommended Diet: Regular Diet Procedures Procedures Performed: FLEXIBLE SIGMOIDOSCOPY Pending Studies Studies pending at discharge: no Medical Emergencies . Who to Call and When: Medical Emergencies: If at any time you feel your situation is an emergency, please call 911 immediately. . Non-Emergent Contact Non-Emergency issues call your: Primary Care Provider . . "Provider Documentation" section prepared by Mary Lou Mckeon. VTE Core Measure Inpt VTE Proph given/why not?: Radha Danielson, SCD's
--- NOTE | 2016-09-27 11:27 | Discharge Summary ---
Discharge Summary Admission Date: Sep 25, 2016 at 20:23 Discharge Date: Sep 27, 2016 Discharge Disposition: Home Principal Diagnosis: fecal impaction, constipation, proctitis Problems/Secondary Diagnoses: hypokalemia Procedures: Flex sigmoidoscopy Consultations: GI Medication Reconciliation New Medications: Ciprofloxacin Hcl (Cipro) 500 Mg Tab 500 MG PO BID for 5 Days Metronidazole (Flagyl) 500 Mg Tab 500 MG PO TID for 5 Days Continued Medications: Finasteride (Propecia) 1 Mg Tab 1 MG PO, TAB Referrals At Discharge Follow up Referrals: [facility] Referral - Within 1-2 Weeks with Jose Goldman M.D. Discharge Exam Patient reports feeling well today. Had several bowel movements after his procedure and fleet enemas yesterday. Denies abdominal pain. Rectal pain is much improved. Does note some fever symptoms overnight. Denies nausea. Review of Systems: Respiratory: No cough, No shortness of breath Cardiovascular: No chest pain Abdomen: No nausea Musculoskeletal: No joint pain Physical Exam: General Appearance: no apparent distress Neck: no JVD Respiratory/Chest: lungs clear Cardiovascular: no murmur, + tachycardia Abdomen / GI: normal bowel sounds, non tender, soft Extremities: no calf tenderness, no pedal edema Neurologic/Psychiatric: oriented x 3 Skin: warm/dry Hospital Course 35-year-old male presented to the emergency department with rectal pain, bleeding and constipation. Found to have Rectosigmoid fecal impaction/ proctitis status post flex sigmoidoscopy-on 09/26 -started on IV cipro and Flagyl. -Tolerating diet -Had several BMs -Change Cipro and Flagyl to oral and additional 5 days -Follow up with GI DVT prophylaxis -Ambulate -TEDS, SCDs CODE STATUS -LEVEL I FULL CODE Total Time Spent: Greater than 30 minutes This includes examination of the patient, discharge planning, medication reconciliation, and communication with other providers. Discharge Instructions Please refer to the electronic Patient Visit Report (Discharge Instructions) for additional information. Follow-Up PCP in 1 week GI within 1 month
[2016-09-27 11:57] VITALS: BP 110/70; PULSE 91; TEMP 37.2; O2SAT 99
--- NOTE | 2016-10-10 15:11 | GI REPORT ---
Procedure Date: 09/26/2016 12:53 PM Procedure: Flexible Sigmoidoscopy Indications: Abnormal CT of the GI tract, Anal pain, Constipation Medicines: Midazolam 2 mg IV, Lidocaine 40 mg IV, Propofol total dose 200 mg IV Complications: No immediate complications. Estimated Blood Loss: Estimated blood loss: none. Procedure: Pre-Anesthesia Assessment: - Prior to the procedure, a History and Physical was performed, and patient medications, allergies and sensitivities were reviewed. The patient's tolerance of previous anesthesia was reviewed. - The risks and benefits of the procedure and the sedation options and risks were discussed with the patient. All questions were answered and informed consent was obtained. After obtaining informed consent, the endoscope was passed under direct vision. Throughout the procedure, the patient's blood pressure, pulse, and oxygen saturations were monitored continuously. The scope was introduced through the anus and advanced to the splenic flexure. The flexible sigmoidoscopy was accomplished without difficulty. The patient tolerated the procedure well. The quality of the bowel preparation was fair. Findings: The perianal exam findings include anal fissure. A few ulcers were found at the anus. No bleeding was present. Normal mucosa was found to the splenic flexure. Impression: - Anal fissure found on perianal exam. - A few ulcers at the anus. - Normal mucosa at the splenic flexure. - No specimens collected. Recommendation: - [facility] - Use Analpram HC Cream 2.5%: Apply externally TID for 4 weeks. Jose Goldman M.D. Jose Goldman MD 09/26/2016 1:10:10 PM Note Initiated On: 09/26/2016 12:53 PM
== END 2016-09-27 12:30 | disposition home or self-care (01) | DRG 389 ==
LOC: ENRESERVDT → ENRESERVTM → C.EDB 13:13 → C.MED 20:23
PROVIDERS: ADMIT Hospitalist; ATTEND Hospitalist
PROC: 0DJD8ZZ Inspection of Lower Intestinal Tract, Via Natural or Artificial Opening Endoscopic (ICD-10-PCS; principal; 2016-09-26 12:34)
DX: K56.41 Fecal impaction (principal); K62.5 Hemorrhage of anus and rectum; K62.89 Other specified diseases of anus and rectum; E87.6 Hypokalemia; Z79.899 Other long term (current) drug therapy